=== PATIENT | female | born 2000 | race Two or more races ===

== ENCOUNTER 2019-02-08 13:07 | Emergency (ER) | payer MEDICAID ==
[~2019-02-08] VITALS: Ht 157.5 cm; Wt 63.2 kg
[2019-02-08 14:49] LABS: COLOR,URINE YELLOW (Yellow); GLUCOSE, URINE NEGATIVE (Neg); KETONES,URINE TRACE mg/dl (Neg); LEUKOCYTE ESTERASE ,URINE SMALL (Neg); NITRITES, URINE NEGATIVE (Neg); OCCULT BLOOD,URINE LARGE (Neg); PH,URINE 5.5 (4.8-8.0); PROTEIN,URINE 100 mg/dl (Neg); URINE HCG NEGATIVE (NEG); UROBILINOGEN,URINE 0.2 E.U/dL (0.2-1.0)
[2019-02-08 14:54] LABS: CLARITY,URINE CLOUDY (Clear); UA COLLECTION TYPE NON-SPECIFIED
[2019-02-08 14:55] LABS: BACTERIA,URINE FEW /HPF (Neg); MUCUS STRANDS FEW /LPF (Neg); SQUAMOUS EPITHELIAL CELL,UR FEW /LPF (FEW); WBC,URINE 50-100 /HPF (0-4)
--- NOTE | 2019-02-08 16:01 | NUR ---
Pt reports feeling bladder is full. US tech paged to complete bedside US.
[2019-02-08] MEDS ORDERED: CefTRIAXone 1000mg IM Kit (w/lidocaine diluent) IM ONE (16:15)
[2019-02-08] MEDS ORDERED: CEPH250T PO (16:17)
--- NOTE | 2019-02-08 16:31 | NUR ---
Bedside US complete.
[2019-02-08 17:28] VITALS: BP 104/52
== END 2019-02-08 17:20 | disposition home or self-care (01) ==
LOC: EDBD 13:08 → ER 13:08
DX: N10 Acute pyelonephritis (principal); Z79.899 Other long term (current) drug therapy
CPT/HCPCS: 76775; 76856; 81001; 81025; 87077; 87088; 87186; 96372; 99284; J0696

== ENCOUNTER 2023-09-28 21:47 | Emergency (ER) | payer SELFPAY ==
[2023-09-28 22:05] VITALS: BP 116/72; PULSE 72; RESP 16; O2SAT 99
== END 2023-09-28 22:07 | disposition home or self-care (01) ==
LOC: ER 21:47
DX: S80.812A Abrasion, left lower leg, initial encounter (principal); S80.811A Abrasion, right lower leg, initial encounter; V89.2XXA Person injured in unspecified motor-vehicle accident, traffic, initial encounter; Y93.89 Activity, other specified; Y92.89 Other specified places as the place of occurrence of the external cause; Y99.8 Other external cause status
CPT/HCPCS: 99283